=== PATIENT | female | born 1985 | race Caucasian/White ===

== ENCOUNTER 2017-05-23 17:55 | Inpatient (IN) | payer BC ==
[~2017-05-23] VITALS: Ht 182.9 cm; Wt 96.8 kg
--- NOTE | ~2017-05-23 | OR ---
PATIENT'S NAME: MATT POOLE [facility] AGE: 32 [address] ROOM: [address] [address] LOCATION: GOBS ADMIT DATE: 05/23/2017 OR/Procedure Report DISCHARGE DATE: 05/26/2017 FAMILY PHYSICIAN: Cristy Romero PA-C ATTENDING PHYSICIAN: Zoila Hope SURGEON: Zoila Hope MD [employer] FLOATS: DATE OF PROCEDURE: 05/24/2017 This is a 5, para 3-1-1-3, who presented for labor induction yesterday at 39 weeks 6 days. She is 1 cm, 50%, -2 station, vertex. care had been uncomplicated. Group B strep testing was negative. She had Cytotec 25 mcg placed after reactive nonstress test was completed. Four hours later, Pitocin was begun. At 5 milliunits per minute, she did have some variables, but then things straightened out when we got the Pitocin up to 21 milliunits per minute. She really was not uncomfortable, but she changed to 3 cm, 50%, -2 station. A labor epidural was placed. Following the labor epidural, I ruptured her membranes. She was found to be 3-4, 60%, -2 station. Slowly, she progressed to a rim and then after that she progressed on to complete. She started pushing at about 0 station. She pushed and delivered spontaneously. She delivered in the AYAD position. A loose nuchal cord was reduced. Shoulders and body were easily delivered. Baby boy's cord was doubly clamped and cut. He was handed off to the warmer. He had score of 8 and 10. He weighed 9 pounds 10 ounces. A three-vessel cord was noted. The placenta was slow to deliver, I did manually help the placenta deliver. I think most of it was detached from the wall. I did a manual exploration of the uterus and retrieved one piece of placenta. Otherwise the uterus feels empty. I gave her 2 g of Ancef to follow. Pitocin was given and she did require one dose of 0.2 mg of Methergine. The patient is doing well. She and baby boy are doing well in recovery. ZOILA H MD BRYANNA HOPE/modl /[id number] d: 05/25/17 0123 t: 05/29/17 0139, OPERATIVE SUMMARY
[2017-05-23] MEDS ORDERED: PRENATAL 1+1)(P1 TAB PO (18:41)
[2017-05-23] MEDS ORDERED: TUMS200 MG PO (18:41)
[2017-05-23] MEDS ORDERED: ACETAMINOPHEN325 MG PO (18:42)
[2017-05-23 18:45] LABS: BASOPHIL % 0.4 %; EOSINOPHIL % 0.3 %; HEMOGLOBIN 11.7 g/dL (11.0-15.0); IMMATURE GRANULOCYTE % 0.5 %; LYMPHOCYTE # 1.7 K/uL (0.8-4.0); MCH 28.1 pg (27.0-34.0); MCHC 33.4 gm/dL (32.0-36.5); MCV 83.9 fl (83.0-98.0); MONOCYTE # 0.7 K/uL (0.0-1.0); MPV 13.2 fl (9.4-12.4); NEUTROPHIL # (ANC) 5.3 K/uL (1.8-7.8); NEUTROPHIL % 67.8 %; NRBC % 0 /100WBC (0-0.00); PLATELET COUNT 136 K/uL (150-450); RBC 4.17 M/uL (3.50-5.50); RDW-CV 16.2 % (11.9-14.6); WBC 7.7 K/uL (4.0-11.0)
--- NOTE | 2017-05-24 06:05 | NUR ---
VSS, 3, 60%, -3, UCs 2-4 min, FHTs 120-130, moderate variability, no pain, Pitocin at 21mu, [place] to check and possibly ROM
[2017-05-25 06:06] LABS: BASOPHIL % 0.2 %; EOSINOPHIL # 0.1 K/uL (0.0-0.5); EOSINOPHIL % 0.5 %; HEMATOCRIT 32.6 % (33.0-46.0); HEMOGLOBIN 10.6 g/dL (11.0-15.0); IMMATURE GRANULOCYTE # 0.1 K/uL (0.0-0.3); IMMATURE GRANULOCYTE % 0.9 %; LYMPHOCYTE # 2.9 K/uL (0.8-4.0); LYMPHOCYTE % 19.4 %; MCH 27.8 pg (27.0-34.0); MCHC 32.5 gm/dL (32.0-36.5); MCV 85.6 fl (83.0-98.0); MONOCYTE # 1.4 K/uL (0.0-1.0); MONOCYTE % 9.5 %; MPV 13.6 fl (9.4-12.4); NEUTROPHIL # (ANC) 10.2 K/uL (1.8-7.8); NEUTROPHIL % 69.5 %; NRBC % 0 /100WBC (0-0.00); PLATELET COUNT 122 K/uL (150-450); RBC 3.81 M/uL (3.50-5.50); RDW-CV 16.4 % (11.9-14.6); WBC 14.7 K/uL (4.0-11.0)
--- NOTE | 2017-05-25 06:20 | NUR ---
VSS. VOIDS WITHOUT DIFFICULTY AND PASSING GAS. FUNDUS FIRM, EVEN, SMALL FLOW. LAST HAD MOTRIN AT 0300 AND PEROCET AT 0250.
--- NOTE | 2017-05-25 17:35 | NUR ---
Last VS: T:98.2 P:65 R: 18 BP: 131/73 Pain rating: . Last pain med: Percocet Medicated at: 150 Effective: Partial relief Breasts: bra on , soft Nipples: erect-intact Fundus: firm, midline , 1 finger below umb Lochia:small , rubra, denies clots Epis/Perineum: approximated, tender , Voiding well: reports Significant event: None this shift. Using heating pad to back and tea pads for perineal discomfort.
--- NOTE | 2017-05-26 05:28 | NUR ---
VSS. VOIDING WITHOUT DIFFICULTY. FUNDUS FIRM, -1, SMALL FLOW. LAST HAD MOTRIN AT 2001 AND PERCOCET AT 0235. HEATING PAD TO BACK.
[2017-05-26] MEDS ORDERED: MOTRIN800 MG PO (10:23)
[2017-05-26] MEDS ORDERED: PERCOCET 5-3251 EACH PO (10:28)
== END 2017-05-26 11:58 | disposition disaster alternative care site (69) | DRG 775 ==
LOC: GOBM 17:55 → GOBS 17:58 → GOBM 17:59 → GOBS 05-26 11:58
PROVIDERS: ADMIT Obstetrics & Gynecology
PROC: 10E0XZZ Delivery of Products of Conception, External Approach (ICD-10-PCS; principal; 2017-05-24)
DX: O69.81X0 Labor and delivery complicated by cord around neck, without compression, not applicable or unspecified (principal); Z37.0 Single live birth; Z3A.39 39 weeks gestation of pregnancy
CPT/HCPCS: J0690; J2001; J2210; J2590; J3010; J7120